=== PATIENT | female | born 1975 | race Hispanic/Latino ===

== ENCOUNTER 2025-02-12 00:16 | Day surgery (SDC) | payer BC, SELFPAY ==
[2025-02-05 08:18] VITALS: BMI 30.2
--- OUTSIDE RECORDS SUMMARY | 2025-02-12 00:21 | XMS_ITS | Clinical Summary ---
Author Organization [facility] Address [address] [place] [address] Care Team Providers Care Customer Success Specialist Name Role Phone Unavailable Primary Care Provider Unavailabl e Source Comments [facility],non-owned Affiliates and Associated Physician Practices is amultiple site organization consisting of ambulatory clinics and hospital sitesin [place], [place], [place] and [place]. This disclosure is being madepursuant to the Care Everywhere program and may not contain all information available regarding this patient. Last updated 18.[facility] Allergies No known active allergies Medications * Be aware that medications may not be up to date on this document. Alwaysverify current medications with the patient. levothyroxine (SYNTHROID) 75 MCG tablet Take 75 mcg by mouth daily before breakfast Active Vit-Fe Fumarate-FA ( VITAMIN) 28-0.8 MG tablet Take 1 Tab by mouth once daily Active ferrous sulfate 325 (65 FE) MG tablet Take 325 mg by mouth once daily Active clotrimazole (LOTRIMIN AF) 1 % creamIndication s:Yeast,Breast folds Apply to affected area 2 times daily Reasons: Yeast, Breast folds Active Active Problems Problem Noted Date Diagnosed Date AMA (advanced maternal age) multigravida 35+ Hypothyroidism affecting 06/22/2016 Encounter for anatomic survey 06/22/2016 Family History Medical History Relation Name Comments Cancer Father Kidney Disease Maternal Grandfather Diabetes Maternal Grandmother Labor Other Clotting Disorder Sister Diabetes Sister Twins Sister Relation Name Status Comments Father Maternal Grandfather Maternal Grandmother Other Sister Social History Tobacco Use Types Packs/Day Years Used Date Smoking Tobacco: Never Smokeless Tobacco: Never Alcohol Use Standard Drinks/Week Comments No 0 (1 standard drink = 0.6 oz pur e alcohol) Comments No Sex and Gender Information Value Date Recorded Sex Assigned at Not on file 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 Gender Identity Not on file Sexual Orientation Not on file Last Filed Vital Signs Vital Sign Reading Time Taken Comments Blood Pressure 94/51 09/03/2016 11:11 AM CDT Pulse 84 09/03/2016 11:11 AM CDT Temperature - - Respiratory Rate - - Oxygen Saturation - - Inhaled Oxygen Concentration - - Weight 68 kg (150 lb) 09/03/2016 11:11 AM CDT Height 152.4 cm (5') 04/23/2016 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 Body Mass Index 29.29 04/23/2016 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 Plan of Treatment Health Maintenance Due Date Last Done Comments COLOGUARD (AGES 45-75) - COL ON CA SCREENING 1977 COLON MONITORING 1977 COLONOSCOPY - COLON CA SCREENING 1977 CT COLONOGRAPHY - COLON CA SCREENING 1977 Colorectal Cancer Screening 1977 FIT - COLON CA SCREENING 1977 FLEX SIG - COLON CA SCREENING 1977 LIPID TESTING 1977 MAMMOGRAM 1977 HIV SCREENING 1992 HEPATITIS C SCREENING 09/21/1995 DTAP/TDAP/TD VACCINES (1 - Tdap) 1996 HEPATITIS B VACCINE (1 of 3 - 19+ 3-dose series) 1996 DEPRESSION SCREENING 05/06/2024 COVID-19 VACCINE (1 - 2023-2 5 season) 2025 INFLUENZA VACCINE (#1) 2025 ZOSTER VACCINE (1 of 2) 09/26/2027 HIB VACCINE Aged Out No longer eligi ble based on patient's age to complete this topic HPV VACCINE Aged Out No longer eligi ble based on patient's age to complete this topic MENINGOCOCCAL (Group B) VACC INE SHARED DECISION-MAKING Aged Out No longer eligibl e based on patient's age to complete this topic MENINGOCOCCAL GROUPS A/C/Y/W VACCINE Aged Out No longer eligible b ased on patient's age to complete this topic PNEUMOCOCCAL VACCINE Aged Out No long er eligible based on patient's age to complete this topic Insurance [employer] MEDICAID - [place]
--- OUTSIDE RECORDS SUMMARY | 2025-02-12 00:21 | XMS_ITS | Clinical Summary ---
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 Gender Identity Not on file Sexual Orientation Not on file Plan of Treatment Health Maintenance Due Date Last Done Comments Hepatitis C Virus (HCV) Screening 1977 Hepatitis B Immunization (1 of 3 - 19+ 3-dose series) 1996 Pap Smear 1998 Cervical Cancer Screening (CCS) 09/26/2007 HPV/Cotest 09/26/2007 Cologuard 2022 Colonoscopy 2022 Colorectal Cancer Screening 2022 Immunochemical Fecal Occult Blood 2022 Influenza Immunization (#1) 01/04/202502/04, 05/27/2017, 03/07/2016, Additional history exists SARS-COV-2 Immunization ( season) 2025 09/10/2020, 08/19/2020 Respiratory Syncytial Virus (RSV) Immunization (Adult) (1 - 1-dose 75+ series) 2052 DTaP/Tdap/Td Immunization Discontinued 11/03/2016, 07/2011 TdaP Immunization Completed 11/03/2016, 11/06/2011 Human Papillomavirus (HPV) Immunization Aged Out No longer eligible based on patient's age to complete this topic Meningococcal Immunization (ACWY) Aged Out No longer eligible based on patient's age to complete this topic Pneumococcal Immunization Combined Aged Out No longer eligible based on patient's age to complete this topic Rotavirus Immunization Aged Out No lo nger eligible based on patient's age to complete this topic
--- OUTSIDE RECORDS SUMMARY | 2025-02-12 00:21 | XMS_ITS | Data Portability ---
Author Organization ID - [facility] Address [address] [place] [address] Care Team Providers Care Bicycle Technician Name Role Phone TAYE VIRK Primary Care Provider Assessment Encounter Date Assessment Date Assessment LastModified by Organization Details LastModified Time 09/24/2023 09/24/2023 IUD 2020 [email or web address] Not available 09/04 11:02:58 10/05/2024 10/05/2024 IUD 2020 [email or web address] Not available 06/2024 11:04:05 Plan of Treatment Reminders Order Date Submit Date Provider Last Modified By Organization Details Last Modified Time Details Appointments None recorded. Lab lipid panel, serum 2024 025 ALAMO [facility], [address], [address], [place], [address], 5 08:27:54 HbA1c (hemoglobi n A1c), blood 2024 025 ALAMO [facility], [address], [address], [place], [address], 5 08:27:56 CMP, serum or plasma 2024 025 ALAMO [facility], [address], [address], [place], [address], 5 08:27:55 CBC w/ auto diff 2024 025 ODILIA [facility], [address] [facility], [address], [place], [address], 5 08:27:57 TSH, serum, reflex free T4 2024 025 [email or web address] [facility] ([facility]), [address], [place], [address], 5 09:04:23 pap, IG + reflex HPV 2023 024 ODILIA [facility], [address] [facility], [address], [place], [address], 4 14:12:20 lipid panel, serum 2023 024 [facility]O [facility], [address], [address], [place], [address], 4 11:16:11 HbA1c (hemoglobi n A1c), blood 2023 024 [facility]O [facility], [address], [address], [place], [address], 4 11:16:13 CMP, serum or plasma 2023 024 [facility], [address], [address], [place], [address], 4 11:16:12 CBC w/ auto diff 2023 024 ALAMO [facility], [address] [facility], [address], [place], [address], 4 11:16:14 TSH + free T4, serum 2023 024 [facility], [address], [address], [place], [address], 4 11:16:09 HbA1c (hemoglobi n A1c), blood 2022 023 [facility], [address], [address], [place], [address], 3 06:16:56 CMP, serum or plasma 2022 023 [facility], [address], [address], [place], [address], 3 20:09:55 noninvasiv e colorectal cancer DNA + occult blood screening, QL, stool 2022 023 ALAMO [facility], [address], [address], [place], [address], 4 08:49:00 lipid panel, serum 2022 023 [facility], [address], [address], [place], [address], 3 20:09:54 TSH, ultra-sens itive, serum 2021 022 [facility], [address] [place] [address], [address], [address], 2 11:04:04 Referral gastroente rologist referral 2024 025 jerrica Casper MD, [address] [place] [address] [address], [address], [place], [address], 5 08:14:42 gastroente rologist referral 2023 024 HOUSTON Casper MD, [address] [facility] [address], [address], [place], [address], 4 16:03:11 Procedures None recorded. Surgeries None recorded. Imaging US, breast, unilateral - pes sized mobile small breast mass L breast around 11:[id number] [facility], [address], [address], [place], [address], 4 08:00:58 MAMMO, diagnostic , digital, bilateral 2023 024 [facility], [address], [address], [place], [address], 4 08:00:59 Medication Orders levothyrox ine 75 mcg tablet 2023 024 ALAMO [facility] #[id number], [address], [place], [id number], 4 10:57:52 levothyrox ine 75 mcg tablet 2022 023 [id number], [address], [place], [id number], 3 11:37:19 Flonase Allergy Relief 50 mcg/actuat ion nasal spray,susp ension 2021 023 [email or web address], [address], [place], [id number], 3 11:27:21 levothyrox ine 75 mcg tablet 2021 022 ALAMO [facility] #[id number], [address], [place], [id number], 2 17:29:30 Patient TargetsNo targets recorded. Patient Instructions Encounter Date Encounter Id Patient Instructions Last Modified By Organization Details Last Modified Time 01/16/2022 [id number] A healthy lifestyle: care instructions Not available 01/16/2022 17:32:03 A healthy lifestyle: care instructions Not available 01/16/2022 17:32:02 07/27/2022 [id number] A healthy lifestyle: care instructions Not available 07/27/2022 11:26:56 09/24/2023 [id number] A healthy lifestyle: care instructions Not available 09/24/2023 10:57:38 A healthy lifestyle: care instructions Not available 09/24/2023 11:14:15 10/03/2023 [id number] A healthy lifestyle: care instructions Not available 10/03/2023 11:10:42 Aprenda sobre la s pruebas de detecci n del c ncer de seno - [Learning About Breast Cancer Screening] Not available 10/03/2023 11:46:37 10/05/2024 [id number] A healthy lifestyle: care instructions Not available 10/05/2024 11:08:58 A healthy lifestyle: care instructions Not available 10/05/2024 11:08:58 Reason for Referral Unix Architect Referral for Screening for malignant neoplasm of colon Referring Physician: Taye Virk Legend Maker, Encounter Date: 09/24/2023 Unix Architect Referral for Screening for malignant neoplasm of colon Referring Physician: Taye Virk Legend Maker, Encounter Date: 10/05/2024 Results Created Date Observation Date Name Description Value Unit Range Abnormal Flag Note LastModifiedBy Organization Detail LastModifiedTime 07/27/1907/27/2023 COLOG UARD cologuard result Cancel led - Order d not applic able Not Available [facility] [address], [place], [address], 07/27/2023 08:49:00 07/28/1907/27/2022 LIPID PANEL cholesterol, total 159.1 mg/dL 140.0- 200.0 Not Available [facility] [address] [place], [address], 07/27/2022 20:09:54 07/28/1907/27/2022 LIPID PANEL triglyceride s 96 mg/dL <=150 Not Available [facility] Department [address] [place], [address], 07/27/2022 20:09:54 07/28/19 23 07/27/2022 LIPID PANEL HDL cholesterol 49.1 mg/dL 40.0-1 00.0 Not Available [facility] [place] [facility] [address] [place], [address], 07/27/2022 20:09:54 07/28/19 23 07/27/2022 LIPID PANEL VLDL cholesterol chai 19.20 mg/dL 5.00-4 0.00 Not Available [facility] [place] [facility] [address] [place], [address], 07/27/2022 20:09:54 07/28/19 23 07/27/2022 LIPID PANEL LDL chol calc ([facility]) 92.2 Not Available [facility] Department [address] [place], [address], 07/27/2022 20:09:54 07/28/19 23 07/27/2022 COMP. METAB OLIC PANEL (14) glucose 90 mg/dL 65-99 ANION GP 15.0 mmol/ L N OSMOL 275.0 mOsM/ L N REFER ENCE RANGE : 275.0 -301. 0 Not Available [facility] [address] [place], [address], 07/27/2022 20:09:55 07/28/19 23 07/27/2022 COMP. METAB OLIC PANEL (14) BUN 11 mg/dL 8-26 Not Available [facility] [place] [facility] [address] [place], [address], 07/27/2022 20:09:55 07/28/19 23 07/27/2022 COMP. METAB OLIC PANEL (14) creatinine 0.58 mg/dL 0.50-1 .40 Not Available [facility] [place] [facility] [address] [place], [address], 07/27/2022 20:09:55 07/28/19 23 07/27/2022 COMP. METAB OLIC PANEL (14) eGFR 114 mL/mi n/1.7 3 >=60 Not Available [facility] [place] [facility] [address] [place] [address], [address], 07/27/2022 20:09:55 07/28/19 23 07/27/2022 COMP. METAB OLIC PANEL (14) BUN/creatini ne ratio 19.7 Not Available [facility] Department [address] [place] [address], [address], 07/27/2022 20:09:55 07/28/19 23 07/27/2022 COMP. METAB OLIC PANEL (14) sodium 138.0 mmol/ L 136.0- 144.0 Not Available [facility] [place] [facility] [address] [place] [address], [address], 07/27/2022 20:09:55 07/28/19 23 07/27/2022 COMP. METAB OLIC PANEL (14) potassium 4.1 mmol/ L 3.5-5. 3 Not Available [facility] [address] [place] [address], [address], 07/27/2022 20:09:55 07/28/19 23 07/27/2022 COMP. METAB OLIC PANEL (14) chloride 103 mmol/ l 101-11 1 Not Available [facility] [address] [place] [address], [address], 07/27/2022 20:09:55 07/28/19 23 07/27/2022 COMP. METAB OLIC PANEL (14) carbon dioxide, total 24.3 mmol/ L 21.0-3 2.0 Not Available [facility] [address] [place] [address], [address], 07/27/2022 20:09:55 07/28/19 23 07/27/2022 COMP. METAB OLIC PANEL (14) calcium 9.3 mg/dL 8.2-10 .0 Not Available [facility] [address] [place], [address], 07/27/2022 20:09:55 07/28/19 23 07/27/2022 COMP. METAB OLIC PANEL (14) protein, total 7.2 g/dL 6.7-8. 2 Not Available [facility] [address] [place], [address], 07/27/2022 20:09:55 07/28/19 23 07/27/2022 COMP. METAB OLIC PANEL (14) albumin 4.5 g/dL 3.5-5. 5 Not Available [facility] [address] [place] [address], [address], 07/27/2022 20:09:55 07/28/19 23 07/27/2022 COMP. METAB OLIC PANEL (14) globulin, total 2.7 g/dL 1.5-4. 5 Not Available [facility] [address] [place], [address], 07/27/2022 20:09:55 07/28/19 23 07/27/2022 COMP. METAB OLIC PANEL (14) A/G ratio 1.7 Not Available [facility] Department [address] [place], [address], 07/27/2022 20:09:55 07/28/19 23 07/27/2022 COMP. METAB OLIC PANEL (14) bilirubin, total 0.6 mg/dL 0.0-1. 2 Not Available [facility] [address] [place], [address], 07/27/2022 20:09:55 07/28/19 23 07/27/2022 COMP. METAB OLIC PANEL (14) alkaline phosphatase 58.2 IU/L 42.0-1 21.0 Not Available [facility] [address] [place], [address], 07/27/2022 20:09:55 07/28/19 23 07/27/2022 COMP. METAB OLIC PANEL (14) AST (SGOT) 12.8 U/L 10.0-4 2.0 Not Available [facility] [address] [place], [address], 07/27/2022 20:09:55 07/28/19 23 07/27/2022 COMP. METAB OLIC PANEL (14) ALT (SGPT) 7.7 U/L 10.0-6 0.0 below low normal Not Available [facility] [address] [place], [address], 07/27/2022 20:09:55 07/28/19 23 07/28/2022 HEMOG LOBIN A1C hemoglobin A1C 5.2 % 4.8-5. 6 Predi abete s: 5.7 - 6.4 Diabe emanuel: >6.4 Glyce francis contr ol for adult s with diabe emanuel: <7.0 Not Available [facility] ([facility]) [address] [place], [address], 07/28/2022 06:16:56 09/24/19 24 2023 TSH+F REE T4 TSH 1.190 uIU/m L 0.450- 4.500 Not Available [facility] ([facility]) [address] [place], [address], 2023 11:16:09 09/24/19 24 2023 TSH+F REE T4 T4,free(dire ct) 1.78 NG/dL 0.82-1 .77 above high normal Not Available [facility] ([facility]) [address] [place], [address], 2023 11:16:09 09/24/19 24 2023 LIPID PANEL cholesterol, total 165 mg/dL 100-19 9 Not Available [facility] ([facility]) [address] [place], [address], 2023 11:16:10 09/24/19 24 2023 LIPID PANEL triglyceride s 79 mg/dL 0-149 Not Available [facility] ([facility]) [address] [place], [address], 2023 11:16:10 09/24/19 24 2023 LIPID PANEL HDL cholesterol 50 mg/dL >39 Not Available [facility] ([facility]) [address] [place], [address], 2023 11:16:10 09/24/19 24 2023 LIPID PANEL VLDL cholesterol chai 15 mg/dL 5-40 Not Available [facility] ([facility]) [address] [place], [address], 2023 11:16:10 09/24/19 24 2023 LIPID PANEL LDL chol calc ([facility]) 100 mg/dL 0-99 above high normal Not Available [facility] ([facility]) [address] [place], [address], 2023 11:16:10 09/24/19 24 2023 COMP. METAB OLIC PANEL (14) glucose 75 mg/dL 70-99 Not Available [facility] ([facility]) [address] [place], [address], 2023 11:16:12 09/24/19 24 2023 COMP. METAB OLIC PANEL (14) BUN 14 mg/dL 6-24 Not Available [facility] ([facility]) [address] [place], [address], 2023 11:16:12 09/24/19 24 2023 COMP. METAB OLIC PANEL (14) creatinine 0.81 mg/dL 0.57-1 .00 Not Available [facility] ([facility]) [address] [place], [address], 2023 11:16:12 09/24/19 24 2023 COMP. METAB OLIC PANEL (14) eGFR 91 mL/mi n/1.7 3 >59 Not Available [facility] ([facility]) [address], [place], [address], 2023 11:16:12 09/24/19 24 2023 COMP. METAB OLIC PANEL (14) BUN/creatini ne ratio 17 9-23 Not Available [facility] ([facility]) [address] [facility] [address], [place], [address], 2023 11:16:12 09/24/19 24 2023 COMP. METAB OLIC PANEL (14) sodium 136 mmol/ L 134-14 4 Not Available [facility] ([facility]) [address] [facility] [address], [place], [address], 2023 11:16:12 09/24/19 24 2023 COMP. METAB OLIC PANEL (14) potassium 4.3 mmol/ L 3.5-5. 2 Not Available [facility] ([facility]) [address] [facility] [place], [place], [address], 2023 11:16:12 09/24/19 24 2023 COMP. METAB OLIC PANEL (14) chloride 101 mmol/ L 96-106 Not Available [facility] ([facility]) [address] [facility], [place], [address], 2023 11:16:12 09/24/19 24 2023 COMP. METAB OLIC PANEL (14) carbon dioxide, total 20 mmol/ L 20-29 Not Available [facility] ([facility]) [address] [facility] [address], [place], [address], 2023 11:16:12 09/24/19 24 2023 COMP. METAB OLIC PANEL (14) calcium 9.2 mg/dL 8.7-10 .2 Not Available [facility] ([facility]) [address] [place], [address], 2023 11:16:12 09/24/19 24 2023 COMP. METAB OLIC PANEL (14) protein, total 7.2 g/dL 6.0-8. 5 Not Available [facility] ([facility]) [address], [place], [address], 2023 11:16:12 09/24/19 24 2023 COMP. METAB OLIC PANEL (14) albumin 4.5 g/dL 3.9-4. 9 Not Available [facility] ([facility]) [address] [place], [address], 2023 11:16:12 09/24/19 24 2023 COMP. METAB OLIC PANEL (14) globulin, total 2.7 g/dL 1.5-4. 5 Not Available [facility] ([facility]) [address] [place], [address], 2023 11:16:12 09/24/19 24 2023 COMP. METAB OLIC PANEL (14) A/G ratio 1.7 1.2-2. 2 Not Available [facility] ([facility]) [address] [place], [address], 2023 11:16:12 09/24/19 24 2023 COMP. METAB OLIC PANEL (14) bilirubin, total 0.7 mg/dL 0.0-1. 2 Not Available [facility] ([facility]) [address] [place], [address], 2023 11:16:12 09/24/19 24 2023 COMP. METAB OLIC PANEL (14) alkaline phosphatase 65 IU/L 44-121 Not Available [facility] ([facility]) [address] [place], [address], 2023 11:16:12 09/24/19 24 2023 COMP. METAB OLIC PANEL (14) AST (SGOT) 21 IU/L 0-40 Not Available [facility] ([facility]) [address] [place], [address], 2023 11:16:12 09/24/19 24 2023 COMP. METAB OLIC PANEL (14) ALT (SGPT) 12 IU/L 0-32 Not Available [facility] ([facility]) [address] [place], [address], 2023 11:16:12 09/24/19 24 2023 HEMOG LOBIN A1C hemoglobin A1C - % Test not perfo rmed. No laven kelly top tube submi tted. Predi abete s: 5.7 - 6.4 Diabe emanuel: >6.4 Glyce francis contr ol for adult s with diabe emanuel: <7.0 Not Available [facility] ([facility]) [address] [place], [address], 2023 11:16:13 09/24/19 24 2023 CBC WITH DIFFE RENTI AL/PL ATELE T WBC - x10e3 /uL Test not perfo rmed. No laven kelly top tube submi tted. Not Available [facility] ([facility]) [address] [place], [address], 2023 11:16:14 09/24/19 24 2023 CBC WITH DIFFE RENTI AL/PL ATELE T RBC - Test not perfo rmed Not Available [facility] ([facility]) [address] [place], [address], 2023 11:16:14 09/24/19 24 2023 CBC WITH DIFFE RENTI AL/PL ATELE T hemoglobin - Test not perfo rmed Not Available [facility] ([facility]) [address] [facility], [place], [address], 2023 11:16:14 09/24/19 24 2023 CBC WITH DIFFE RENTI AL/PL ATELE T hematocrit - Test not perfo rmed Not Available [facility] ([facility]) [address] [facility], [place], [address], 2023 11:16:14 09/24/19 24 2023 CBC WITH DIFFE RENTI AL/PL ATELE T platelets - Test not perfo rmed Not Available [facility] ([facility]) [address] [facility], [place], [address], 2023 11:16:14 09/24/19 24 2023 CBC WITH DIFFE RENTI AL/PL ATELE T neutrophils - Test not perfo rmed Not Available [facility] ([facility]) [address] [facility], [place], [address], 2023 11:16:14 09/24/19 24 2023 CBC WITH DIFFE RENTI AL/PL ATELE T lymphs - Test not perfo rmed Not Available [facility] ([facility]) [address] [place], [address], 2023 11:16:14 09/24/19 24 2023 CBC WITH DIFFE RENTI AL/PL ATELE T monocytes - Test not perfo rmed Not Available [facility] ([facility]) [address] [place], [address], 2023 11:16:14 09/24/19 24 2023 CBC WITH DIFFE RENTI AL/PL ATELE T eos - Test not perfo rmed Not Available [facility] ([facility]) [address] [facility], [place], [address], 2023 11:16:14 09/24/19 24 2023 CBC WITH DIFFE RENTI AL/PL ATELE T lymphs (absolute) - Test not perfo rmed Not Available [facility] ([facility]) [address] [place], [address], 2023 11:16:14 09/24/19 24 2023 CBC WITH DIFFE RENTI AL/PL ATELE T eos (absolute) - Test not perfo rmed Not Available [facility] ([facility]) [address] [facility], [place], [address], 2023 11:16:14 09/24/19 24 2023 CBC WITH DIFFE RENTI AL/PL ATELE T baso (absolute) - Test not perfo rmed Not Available [facility] ([facility]) [address] [place], [address], 2023 11:16:14 10/03/19 24 10/03/2023 IGP,A PTIMA HPV,A GE GDLN age gdln acog testing 30-65 Not Available [facility] ([facility]) [address] [place], [address], 10/08/2023 14:12:20 10/03/19 24 10/05/2023 IGP, APTIM A HPV, RFX 16/18 ,45 HPV aptima Negati ve negati ve This nucle ic acid ampli ficat ion test detec ts fourt een high- risk HPV types (16,1 8,31, 33,35 ,39,4 5,51, 52,56 ,58,5 9,66, 68) witho ut diffe renti ation . Not Available [facility] ([facility]) [address] [facility], [place], [address], 10/08/2023 14:12:22 10/03/19 24 10/08/2023 IGP, APTIM A HPV, RFX 16/18 ,45 diagnosis: Elliot carroll NEGAT JOSE FOR INTRA EPITH ELIAL LESIO N OR MALIG KACY . SPECI MEN REPRO CESSE D FOR INTER PRETA TION USING GLACI AL ACETI C ACID (GAA) . Not Available [facility] ([facility]) [address] [facility], [place], [address], 10/08/2023 14:12:22 10/03/19 24 10/08/2023 IGP, APTIM A HPV, RFX 16/18 ,45 specimen adequacy: Elliot carroll Satis facto ry for evalu ation . No endoc ervic al compo nent is ident ified . Areas of parti ally obscu ring blood are prese nt. Not Available [facility] ([facility]) [address] [facility], [place], [address], 10/08/2023 14:12:22 10/03/19 24 10/08/2023 IGP, APTIM A HPV, RFX 16/18 ,45 clinician provided ICD10: Elliot carroll Z01.4 19 Not Available [facility] ([facility]) [address] [facility], [place], [address], 10/08/2023 14:12:22 10/03/19 24 10/08/2023 IGP, APTIM A HPV, RFX 16/18 ,45 performed by: Elliot Sharif Cytocarly carroll (ASCP ) Not Available [facility] ([facility]) [address] [facility], [place], [address], 10/08/2023 14:12:22 10/03/19 24 10/08/2023 IGP, APTIM A HPV, RFX 16/18 ,45 . . Not Available [facility] ([facility]) [address] [place], [address], 10/08/2023 14:12:22 10/03/19 24 10/08/2023 IGP, APTIM A HPV, RFX 16/18 ,45 note: Commen t The Pap smear is a scree jennifer test desig yg to aid in the detec tion of darwin ligna nt and malig nant condi tions of the uteri ne cervi x. It is not a diagn ostic proce dure and shoul d not be used as the sole means of detec ting cervi chai cance r. Both false -posi tive and false -nega tive repor ts do occur . Not Available [facility] ([facility]) [address] [place], [address], 10/08/2023 14:12:22 10/03/19 24 10/08/2023 IGP, APTIM A HPV, RFX 16/18 ,45 test methodology: Commen t This liqui d based ThinP rep(R ) pap test was scree yg with the use of an image guide d systashok m. Not Available [facility] ([facility]) [address] [place], [address], 10/08/2023 14:12:22 10/03/19 24 10/08/2023 IGP, APTIM A HPV, RFX 16/18 ,45 HPV genotype reflex Commen t Crite huang not met, HPV Genot ype not perfo rmed. Not Available [facility] ([facility]) [address] [place], [address], 10/08/2023 14:12:22 10/06/19 25 10/06/2024 LIPID PANEL cholesterol, total 179 mg/dL 100-19 9 Not Available [facility] ([facility]) [address] [place], [address], 10/06/2024 08:27:54 10/06/19 25 10/06/2024 LIPID PANEL triglyceride s 143 mg/dL 0-149 Not Available [facility] ([facility]) [address] [facility] [place], [address], 10/06/2024 08:27:54 10/06/19 25 10/06/2024 LIPID PANEL HDL cholesterol 53 mg/dL >39 Not Available [facility] ([facility]) [address] [facility] [place], [address], 10/06/2024 08:27:54 10/06/19 25 10/06/2024 LIPID PANEL VLDL cholesterol chai 25 mg/dL 5-40 Not Available [facility] ([facility]) [address] [facility] [place], [address], 10/06/2024 08:27:54 10/06/19 25 10/06/2024 LIPID PANEL LDL chol calc ([facility]) 101 mg/dL 0-99 above high normal Not Available [facility] ([facility]) [address] [place], [address], 10/06/2024 08:27:54 10/06/19 25 10/06/2024 COMP. METAB OLIC PANEL (14) glucose 92 mg/dL 70-99 Not Available [facility] ([facility]) [address] [facility] [place], [address], 10/06/2024 08:27:55 10/06/19 25 10/06/2024 COMP. METAB OLIC PANEL (14) BUN 11 mg/dL 6-24 Not Available [facility] ([facility]) [address] [place], [address], 10/06/2024 08:27:55 10/06/19 25 10/06/2024 COMP. METAB OLIC PANEL (14) creatinine 0.70 mg/dL 0.57-1 .00 Not Available [facility] ([facility]) [address] [place], [address], 10/06/2024 08:27:55 10/06/19 25 10/06/2024 COMP. METAB OLIC PANEL (14) eGFR 107 mL/mi n/1.7 3 >59 Not Available [facility] ([facility]) [address] [place], [address], 10/06/2024 08:27:55 10/06/19 25 10/06/2024 COMP. METAB OLIC PANEL (14) BUN/creatini ne ratio 16 9-23 Not Available [facility] ([facility]) [address] [place], [address], 10/06/2024 08:27:55 10/06/19 25 10/06/2024 COMP. METAB OLIC PANEL (14) sodium 138 mmol/ L 134-14 4 Not Available [facility] ([facility]) [address] [place], [address], 10/06/2024 08:27:55 10/06/19 25 10/06/2024 COMP. METAB OLIC PANEL (14) potassium 4.2 mmol/ L 3.5-5. 2 Not Available [facility] ([facility]) [address] [place], [address], 10/06/2024 08:27:55 10/06/19 25 10/06/2024 COMP. METAB OLIC PANEL (14) chloride 104 mmol/ L 96-106 Not Available [facility] ([facility]) [address] [place], [address], 10/06/2024 08:27:55 10/06/19 25 10/06/2024 COMP. METAB OLIC PANEL (14) carbon dioxide, total 20 mmol/ L 20-29 Not Available [facility] ([facility]) [address] [place], [address], 10/06/2024 08:27:55 10/06/19 25 10/06/2024 COMP. METAB OLIC PANEL (14) calcium 9.0 mg/dL 8.7-10 .2 Not Available [facility] ([facility]) [address] [facility] [place], [address], 10/06/2024 08:27:55 10/06/19 25 10/06/2024 COMP. METAB OLIC PANEL (14) protein, total 7.1 g/dL 6.0-8. 5 Not Available [facility] ([facility]) [address] [facility] [place], [address], 10/06/2024 08:27:55 10/06/19 25 10/06/2024 COMP. METAB OLIC PANEL (14) albumin 4.5 g/dL 3.9-4. 9 Not Available [facility] ([facility]) [address] [facility] [place], [address], 10/06/2024 08:27:55 10/06/19 25 10/06/2024 COMP. METAB OLIC PANEL (14) globulin, total 2.6 g/dL 1.5-4. 5 Not Available [facility] ([facility]) [address] [facility] [place], [address], 10/06/2024 08:27:55 10/06/19 25 10/06/2024 COMP. METAB OLIC PANEL (14) bilirubin, total 0.5 mg/dL 0.0-1. 2 Not Available [facility] ([facility]) [address] [facility] [place], [address], 10/06/2024 08:27:55 10/06/19 25 10/06/2024 COMP. METAB OLIC PANEL (14) alkaline phosphatase 68 IU/L 44-121 Not Available [facility] ([facility]) [address] [facility] [place], [address], 10/06/2024 08:27:55 10/06/19 25 10/06/2024 COMP. METAB OLIC PANEL (14) AST (SGOT) 18 IU/L 0-40 Not Available [facility] ([facility]) [address] [place], [address], 10/06/2024 08:27:55 10/06/19 25 10/06/2024 COMP. METAB OLIC PANEL (14) ALT (SGPT) 16 IU/L 0-32 Not Available [facility] ([facility]) [address] [place], [address], 10/06/2024 08:27:55 10/06/19 25 10/06/2024 HEMOG LOBIN A1C hemoglobin A1C 5.2 % 4.8-5. 6 Predi abete s: 5.7 - 6.4 Diabe emanuel: >6.4 Glyce francis contr ol for adult s with diabe emanuel: <7.0 Not Available [facility] ([facility]) [address] [facility] [address], [place], [address], 10/06/2024 08:27:56 10/06/19 25 10/06/2024 CBC WITH DIFFE RENTI AL/PL ATELE T WBC 5.9 x10e3 /uL 3.4-10 .8 Not Available [facility] ([facility]) [address] [place], [address], 10/06/2024 08:27:57 10/06/19 25 10/06/2024 CBC WITH DIFFE RENTI AL/PL ATELE T RBC 4.71 x10e6 /uL 3.77-5 .28 Not Available [facility] ([facility]) [address] [place], [address], 10/06/2024 08:27:57 10/06/19 25 10/06/2024 CBC WITH DIFFE RENTI AL/PL ATELE T hemoglobin 14.7 g/dL 11.1-1 5.9 Not Available [facility] ([facility]) [address] [place], [address], 10/06/2024 08:27:57 10/06/19 25 10/06/2024 CBC WITH DIFFE RENTI AL/PL ATELE T hematocrit 44.0 % 34.0-4 6.6 Not Available [facility] ([facility]) [address] [place], [address], 10/06/2024 08:27:57 10/06/19 25 10/06/2024 CBC WITH DIFFE RENTI AL/PL ATELE T MCV 93 fL 79-97 Not Available [facility] ([facility]) [address] [place], [address], 10/06/2024 08:27:57 10/06/19 25 10/06/2024 CBC WITH DIFFE RENTI AL/PL ATELE T MCH 31.2 pg 26.6-3 3.0 Not Available [facility] ([facility]) [address] [place], [address], 10/06/2024 08:27:57 10/06/19 25 10/06/2024 CBC WITH DIFFE RENTI AL/PL ATELE T MCHC 33.4 g/dL 31.5-3 5.7 Not Available [facility] ([facility]) [address] [place], [address], 10/06/2024 08:27:57 10/06/19 25 10/06/2024 CBC WITH DIFFE RENTI AL/PL ATELE T RDW 12.3 % 11.7-1 5.4 Not Available [facility] ([facility]) [address] [place], [address], 10/06/2024 08:27:57 10/06/19 25 10/06/2024 CBC WITH DIFFE RENTI AL/PL ATELE T platelets 224 x10e3 /uL 150-45 0 Not Available [facility] ([facility]) [address] [place], [address], 10/06/2024 08:27:57 10/06/19 25 10/06/2024 CBC WITH DIFFE RENTI AL/PL ATELE T neutrophils 59 % notest ab. Not Available [facility] ([facility]) [address] [facility] [address], [place], [address], 10/06/2024 08:27:57 10/06/19 25 10/06/2024 CBC WITH DIFFE RENTI AL/PL ATELE T lymphs 33 % notest ab. Not Available [facility] ([facility]) [address] [facility] [address], [place], [address], 10/06/2024 08:27:57 10/06/19 25 10/06/2024 CBC WITH DIFFE RENTI AL/PL ATELE T monocytes 7 % notest ab. Not Available [facility] ([facility]) [address] [facility] [address], [place], [address], 10/06/2024 08:27:57 10/06/19 25 10/06/2024 CBC WITH DIFFE RENTI AL/PL ATELE T eos 1 % notest ab. Not Available [facility] ([facility]) [address] [facility] [address], [place], [address], 10/06/2024 08:27:57 10/06/19 25 10/06/2024 CBC WITH DIFFE RENTI AL/PL ATELE T basos 0 % notest ab. Not Available [facility] ([facility]) [address] [place], [address], 10/06/2024 08:27:57 10/06/19 25 10/06/2024 CBC WITH DIFFE RENTI AL/PL ATELE T neutrophils (absolute) 3.5 x10e3 /uL 1.4-7. 0 Not Available [facility] ([facility]) [address] [place], [address], 10/06/2024 08:27:57 10/06/19 25 10/06/2024 CBC WITH DIFFE RENTI AL/PL ATELE T lymphs (absolute) 2.0 x10e3 /uL 0.7-3. 1 Not Available [facility] ([facility]) [address] [facility] [address], [place], [address], 10/06/2024 08:27:57 10/06/19 25 10/06/2024 CBC WITH DIFFE RENTI AL/PL ATELE T monocytes(ab solute) 0.4 x10e3 /uL 0.1-0. 9 Not Available [facility] ([facility]) [address] [facility] [address], [place], [address], 10/06/2024 08:27:57 10/06/19 25 10/06/2024 CBC WITH DIFFE RENTI AL/PL ATELE T eos (absolute) 0.1 x10e3 /uL 0.0-0. 4 Not Available [facility] ([facility]) [address] [facility] [address], [place], [address], 10/06/2024 08:27:57 10/06/19 25 10/06/2024 CBC WITH DIFFE RENTI AL/PL ATELE T baso (absolute) 0.0 x10e3 /uL 0.0-0. 2 Not Available [facility] ([facility]) [address] [facility], [place], [address], 10/06/2024 08:27:57 10/06/19 25 10/06/2024 CBC WITH DIFFE RENTI AL/PL ATELE T immature granulocytes 0 % notest ab. Not Available [facility] ([facility]) [address] [place], [address], 10/06/2024 08:27:57 10/06/19 25 10/06/2024 CBC WITH DIFFE RENTI AL/PL ATELE T immature grans (abs) 0.0 x10e3 /uL 0.0-0. 1 Not Available [facility] ([facility]) [address] [facility], [place], [address], 10/06/2024 08:27:57 Result Notes None recorded. Problems Name Problem SNOMED Code Status Onset Date Resolution Date Notes Provider Name and Address Organization Details Recorded Time Hypothyr oidism 29483339 Active [facility] co managed Abhishek Mitchell MD Attn: Accounting ,[address] [place], [address] , [facility] 7 13:07:49 Dizzines s 366096010 Active Elda Law PA-C Attn: Accounting ,[address] [place], [address] , [facility] 6 11:21:13 Deliveri es by [id number] Completed planning vasectom y Abhishek Mitchell MD Attn: Accounting ,[address] [place], [address] , [facility] 7 13:07:49 Advanced maternal age 185327145 Completed declined genetic testing w [facility] Abhishek Mitchell MD Attn: Accounting ,[address] [place], [address] , [facility] 7 13:07:49 Hypothyr oidism 45554289 Completed [facility] co managed Abhishek Mitchell MD Attn: Accounting ,[address] [place], [address] , [facility] 7 13:07:49 Anemia 801928697 Completed on Fe therapy with Hx of heavy menses 1 year before getting Abhishek Mitchell MD Attn: Accounting ,[address] [place], [address] , [facility] 7 13:07:49 Herpes simplex 91300637 Completed plan 3rd trim prophyll axis Abhishek Mitchell MD Attn: Accounting ,[address] [place], [address] , [facility] 7 13:07:49 Pregnanc y 99767638 Completed 201512/31/2016 Abhishek Mitchell MD Attn: Accounting ,[address] [place], [address] , [place] [facility] 7 13:07:52 Nasal congesti on 57628486 Active 2016 Elda Law PA-C Attn: Accounting ,[address] [facility], [place], [address] , [place] [facility] 7 10:58:31 Low-lyin g placenta 391828188 Completed 2016 [facility] us at 28+ weeks Abhishek Mitchell MD Attn: Accounting ,[address] [facility], [place], [address] , [place] [facility] 7 13:07:49 Iron deficien cy anemia 07089556 Active 2018 Aftab Kapoor MD Attn: Accounting ,[address] [facility], [place], [address] , [place] [facility] 9 18:49:46 [place] ht 710824143 Active 2023 DRAGAN BUENO Attn: Accounting ,[address] [facility], [place], [address] , [place] [facility] 4 11:16:49 Polyp at cervical os 783045147 Active 2023 DRAGAN BUENO Attn: Accounting ,[address] [facility], [place], [address] , [place] [facility] 4 11:32:23 Problem Notes None recorded. Procedures Surgical History Date Name Laterality Status Provider Name and Address Organization Details Recorded Time 04/05/20 21 Date of Last Mammogram completed Janette Sampson [place] - [facility] 07/03/2021 15:46:00 03/14/20 21 Most Recent Mammogram completed Justus Younger ID - [facility] 03/23/2021 13:27:12 12/05/19 21 Date of Last Pap Smear completed Janette Sampson [place] - [facility] 07/03/2021 15:45:35 06/09/19 21 Endometrial Biopsy completed Justus Younger ID - [facility] 06/09/2020 22:52:29 06/09/19 21 IUD Insertion completed Justus Younger ID - [facility] 06/09/2020 22:53:14 11/02/19 17 section completed Justus Younger ID - [facility] 10/05/2019 20:23:43 11/27/19 09 Caesarean Section completed Ramesh Bocanegra ID - [facility] 04/13/2014 16:54:14 03/26/20 06 [facility] 04/13/[facility] 16:54:14 Imaging Results None recorded. Procedure Notes None recorded. Medical Equipment None Reported. Allergies No known drug allergies Medications Name Sig Start Date Stop Date Status Note LastModified by Organization Details LastModified Time amoxicill in 500 mg capsule TAKE ONE CAPSULE BY MOUTH EVERY 6 HOURS UNTIL ALL TAKEN 06/09 completed Not Available Not Available Not Available Mirena 21 mcg/24 hr (up to 8 years) 52 mg intrauter ine device Take 1 device by intraute rine route. active INSERTED 06/09/20 Not Available Not Available Not Available clindamyc in HCl 300 mg capsule Take 1 capsule 3 times a day by oral route as directed for 10 days. 05/27 completed Not Available Not Available Not Available Pain Reliever (acetamin ophen) 325 mg tablet TAKE 1 TABLET BY MOUTH EVERY 6 HOURS NEEDED FOR PAIN 12/07 completed Not Available Not Available Not Available ibuprofen 800 mg tablet TAKE 1 TABLET BY MOUTH EVERY 8 HOURS 06/09 completed Not Available Not Available Not Available nystatin 100,000 unit/gram topical ointment APPLY TO THE AFFECTED AREA(S) BY TOPICAL ROUTE 2 TIMES PER DAY 04/03 completed Not Available Not Available Not Available hydrocodo ne 5 mg-acetam inophen 325 mg tablet 05/27 completed Not Available Not Available Not Available triamcino lone acetonide 0.1 % topical cream APPLY A THIN LAYER TO THE AFFECTED AREA(S) BY TOPICAL ROUTE 2 TIMES PER DAY 04/03 completed Not Available Not Available Not Available acyclovir 800 mg tablet Take 1 tablet twice a day by oral route for 30 days. 05/27 completed Not Available Not Available Not Available levothyro xine 75 mcg tablet TAKE 1 TABLET BY MOUTH EVERY DAY IN THE MORNING 2024 active Not Available Not Available Not Avai lable Vitamin tablet Take 1 tablet every day by oral route. 05/27 completed Not Available Not Available Not Available levothyro xine 88 mcg tablet Take 1 tablet every day by oral route in the morning. 2013 active Not Available Not Available Not Avai lable ceftriaxo ne 1 gram solution for injection Take 1 g by injectio n route. 05/27 completed Not Available Not Available Not Available Microgest in FE 05/25 (28) 1 mg-20 mcg (21)/75 mg (7) tablet Take 1 tablet every day by oral route. 02/25 completed Not Available Not Available Not Available amoxicill in 875 mg tablet TAKE 1 TABLET BY MOUTH TWICE DAILY UNTIL ALL TAKEN. 07/27 completed Not Available Not Available Not Available ferrous sulfate 325 mg (65 mg iron) tablet TAKE 1 TABLET BY MOUTH THREE TIMES DAILY 12/07 completed Not Available Not Available Not Available hydrocort isone 2.5 % topical cream APPLY A THIN LAYER TO THE AFFECTED AREA(S) BY TOPICAL ROUTE 2 TIMES PER DAY FOR 1 WEEK, THEN STOP 10/04 completed Not Available Not Available Not Available ibuprofen 600 mg tablet TAKE 1 TABLET BY MOUTH EVERY 6 HOURS NEEDED FOR PAIN 12/07 completed Not Available Not Available Not Available clotrimaz ole 1 % topical cream APPLY TO THE AFFECTED AND SURROUND ING AREAS OF SKIN BY TOPICAL ROUTE 2 TIMES PER DAY IN THE MORNING AND EVENING 05/27 completed Not Available Not Available Not Available Se- 19 (with docusate) 29 mg iron-1 mg-25 mg tablet TAKE 1 TABLET BY MOUTH EVERY DAY 05/27 completed Not Available Not Available Not Available levothyro xine 88 mcg capsule Take 1 capsule( s) by mouth daily before breakfas t. 06/14 completed Allow Substitu tion: True Not Available Not Available Not Available Fluvirin 5383-7474 (PF) 45 mcg (15 mcg x3)/0.5 mL intramusc ular syringe 2013 active Not Available Not Available Not Avai lable Flonase Allergy Relief 50 mcg/actua tion nasal spray,fan pension [place] 1 spray every day by intranas al route. 07/27 completed Not Available Not Available Not Available Fluvirin 8282-2319 45 mcg (15 mcg x 3)/0.5 mL intramusc ular suspensio n 06/13 completed Not Available Not Available Not Available Vitals Date Recorded Body mass index (BMI) Body weight Heart rate Oxygen saturation Oxygen saturation in Arterial blood by Pulse oximetry Systolic And Diastolic Provider Name and Address Organization Details Last Updated DateTime 26.3 kg/m2 64505.6 2 g 68 /min 99 % 99 % 120/70 mm[Hg] DRAGAN BUENO Attn: Accountin g,[address] [place], [address], [facility] 3 11:22:01 Date Recorded Body height Provider Name an d Address Organization Details Last Updated DateTime 07/27/2022 156.21 cm Janette Sampson MA [facility] 2022 11:16:00 Date Recorded Heart rate Body mass index (BMI) Body height Provider Name and Address Organization Details Last Updated DateTime 09/24/2023 66 /min 25.9 kg/m2 156.21 cm DRAGAN BUENO Attn: Accounting, [place], [address], [facility] 09/24/2023 11:16:34 Date Recorded Body weight Oxygen saturation Oxygen saturation in Arterial blood by Pulse oximetry Systolic And Diastolic Provider Name and Address Organization Details Last Updated DateTime 09/24/2023 45471.04 g 98 % 98 % 125/77 mm[Hg] Janette Sampson MA [facility] 4 11:13:35 Date Recorded Body height Body mass index (BMI) Body weight Heart rate Oxygen saturation Oxygen saturation in Arterial blood by Pulse oximetry Systolic And Diastolic Provider Name and Address Organization Details Last Updated DateTime 156.21 cm 26.7 kg/m2 16098.8 1 g 65 /min 98 % 98 % 113/71 mm[Hg] BINTA Kenyon [facility] 4 11:02:42 Date Recorded Body height Body mass index (BMI) Body weight Heart rate Oxygen saturation Oxygen saturation in Arterial blood by Pulse oximetry Systolic And Diastolic Provider Name and Address Organization Details Last Updated DateTime 5 156.21 cm 27.1 kg/m2 49641.4 9 g 66 /min 99 % 99 % 124/71 mm[Hg] Janette Sampson MA [facility] 5 10:52:35 Date Recorded Body height Body mass index (BMI) Body weight Heart rate Oxygen saturation Oxygen saturation in Arterial blood by Pulse oximetry Systolic And Diastolic Provider Name and Address Organization Details Last Updated DateTime 2 156.21 cm 26.7 kg/m2 57453.5 1 g 72 /min 98 % 98 % 114/68 mm[Hg] Janette Sampson MA [facility] 2 17:03:03 Social History Question Answer Notes LastModified by Organizat ion Details LastModified Time Tobacco Smoking Status Never Smoker Ramesh Bocanegra [facility], [facility] 04/13/2014 16:54:14 Is Blood Transfusion Acceptable In An Emergency? Yes Information not available 06/23/2014 What Is Your Level Of Caffeine Consumption? Occasional Information not available 04/13/2014 How Much Tobacco Do You Chew? None Information not available 06/23/2014 What Type Of Diet Are You Following? REGULAR Information not available 06/23/2014 Which Illicit Or Recreational Drugs Have You Used? None Information not available 06/23/2014 Education 9 Information no t available 06/23/2014 Live Alone Or With Others? With Others Information not available 04/13/2014 What Was The Date Of Your Most Recent Tobacco Screening? 10/05/2024 Information not available 10/05/2024 How Many Children Do You Have? 2 Information not available 04/13/2014 Performs Monthly Self-breast Exam? Yes Information no t available 06/23/2014 What Is Your Relationship Status? Information not available 06/23/2014 Seat Belts Used Routinely Yes Information not available 06/23/2014 Are You Sexually Active? Yes Information not available 06/23/2014 How Much Tobacco Do You Smoke? No Information not available 06/23/2014 General Stress Level Medium Information not available 06/23/2014 Do You Use Sunscreen Routinely? Yes Information not available 06/23/2014 On What Date Was Tobacco Cessation Counseling Provided? 10/05/2024 Information not available 10/05/2024 Sex: Female Functional Status Question Answer Note LastModified by Organizat ion Details LastModified Time What is your level of alcohol consumption? None Information not available 04/13/2014 Do you or have you ever used smokeless tobacco? Never used smokeless tobacco Information not available 10/05/2019 Are you currently employed? No Information not available 06/23/2014 Are you able to care for yourself independently? 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 Never used electronic cigarettes Information not available 10/05/2019 What is your exercise level? None Information not available 06/23/2014 Mental Status None recorded. Family History Relationship Description Onset Age of this Age Resolved Age Notes LastModified by Organization Details LastModified Time Father Malignant neoplasm of transverse colon 72 [email or web address] Not available 2015 11:21:18 Sister Leukemia [email or web address] Not availab le 10/05/2019 16:12:47 Medical History Condition Response Coronary Artery Disease N Other N Atrial Fibrillation N High Blood Pressure N Thyroid Problems Y Kidney or Bladder Problems N Depression N COPD N Blood Clots N GI Problems N Skin Problems N Anemia N Heart Attack ([place]) N Diabetes N Anxiety Disorder N Muscle, Joint, or Bone Problems N Seizures/Epilepsy N Acid Reflux (GERD) N Cancer N Stroke N Allergies N Asthma N High Cholesterol N Hepatitis N Liver Disease N Headaches N Osteoporosis N Heart Failure N Gynecological History Statement/Question Response Abnormal Pap N Date of Last Mammogram 04/05/2021 Flow Moderate Date of LMP On BCP's at Conception? N STIs/STDs N HPV Vaccine N Most Recent Mammogram 03/14/2021 Age at Menarche 15 Current Control Method IUD Age at First Child 29 Frequency of Cycle (Q days) 30 Sexually Active? Y Menses Monthly Y Date of Last Pap Smear 12/04/2020 Sexual Problems? N LMP Approximate Desired Control Method IUD Obstetrics History GPAL:G 5 P 3 0 2 3 Type Value Multiple Births 0 Full Term 3 Induced 0 Spontaneous 2 Premature 0 Living 3 Ectopics 0 Total 5 Immunizations Vaccine Type Date Status Note Provider Nam e and Address Organization Details Recorded Time COVID-19, mRNA, LNP-S, PF, 30 mcg/0.3 mL dose 1 completed Layo Grewal [place], [place] [facility] 11/09/2020 12:32:24 COVID-19, mRNA, LNP-S, PF, 30 mcg/0.3 mL dose 1 completed [facility] [place], [place] [facility] 11/09/2020 12:32:45 Influenza, split virus, quadrivalent, preservative 6 completed Not Available [facility] 05/23/2019 02:32:35 Influenza, split virus, trivalent, PF 5 completed Not Available [facility] 10/05/2024 10:42:34 Tdap 7 completed Not Available [facility] 10/05/2024 10:42:34 Influenza, split virus, quadrivalent, preservative 8 completed Not Available [facility] 05/23/2019 02:47:58 Influenza, split virus, quadrivalent, preservative 0 completed DRAGAN GLASGOW Attn: Accounting[address] [place], [address], [place] [facility] 02/26/2020 15:36:15 influenza, seasonal, intradermal, preservative free 3 completed Not Available [facility] 06/06/2019 02:11:42 Tdap 2 completed Not Available [facility] 05/09/2016 05:53:24 Influenza, split virus, trivalent, preservative 4 completed LALO Nielsen Attn: Accounting[address] [place], [address], [place] [facility] 07/02/2014 16:33:20 Past Encounters Encounter ID Performer Location Encounter Start Date Encounter Closed Date Diagnosis/Indication Diagnosis SNOMED-CT Code Diagnosis ICD10 Code Diagnosis IMO Codes Diagnosis Note [id number] [facility]O [facility] [address] [facility] [place] [address] 04/13/2014 16:30:56 04/13/2014 17:31:49 Hypothyroidism 77045135 Dizziness 556313660 Suspec t it could be viral, patient to call office if not improved in 3 weeks. [id number] Abhishek Mitchell MD W Roger[facility] pulido ([facility]) [address] [place] [phone] 06/23/2014 14:07:42 06/28/2014 17:41:50 [facility]necologic examination 24626624 [id number] [address] [facility] [place] [address] 07/02/2014 16:21:31 07/02/2014 16:41:42 Hypothyroidism 44285972 [id number] Maryam Abad MD [facility] (Adult Med) [address] [place] [address] 06/13/2015 10:38:37 06/13/2015 11:23:31 Hypothyroidism 66834849 E03.9 Given orders to bring to [facility] to have completed When I receive results, if they are WNL will prescribe medication for another year - if not, will have adjust medication s accordingl y and have patient RTC in 2 months [id number] Maryam Abad MD [facility] (Adult Med) [address] [place] [address] 03/05/2016 16:22:08 03/07/2016 12:51:48 Active or passive immunization 042947514 Z23 Atopic dermatitis 170685 01 L20.9 Advised to try sports bras with good support under bilateral breasts that ensures that the skin does not rubWill try combinatio n of nystatin/t riamcinolo ne creamRTC in 1 week if no improvemen t [id number] Abhishek Mitchell MD [facility] pulido ([facility]) [address] [place] [address] 04/03/2016 10:25:19 04/04/2016 14:16:41 Advanced maternal age 307054798 O09.521 Routine an tenatal care 083986236 Z34.01 [id number] MD [facility] ([facility]) [address] [place] [address] 04/24/2016 10:03:51 05/09/2016 11:27:10 Gestation period, 11 weeks 61557583 Z3A.11 Advanced m aternal age 840920913 O09.521 Hypothyroi dism in 594120635 E03.9 Anemia 312401316 D64.9 [id number] MD [facility] ([facility]) [address] [place] [address] 06/04/2016 09:57:25 06/08/2016 12:18:14 Gestation period, 17 weeks 47632372 Z3A.17 Anemia dur ing - baby not yet delivered 627004340 O99.087 [id number] Maryam Abad MD [facility] (Adult Med) [address] [place] [address] 06/14/2016 10:28:02 06/14/2016 14:39:39 Hypothyroidism 09116989 E03.9 Continue with levothyrox ine 75mcgTSH/T 4 WNL in 03/2016 3 months ago - will not draw todayAdvis ed to follow with OBGYN for any concerns while she is Nasal congestion 8321814 0 R09.81 Advised to follow with OBGYN for any concerns while she is [id number] MD [facility] ([facility]) [address] [place] [address] 07/02/2016 09:55:20 07/04/2016 10:47:32 Gestation period, 21 weeks 33661301 Z3A.21 15047810 Z33.1 [id number] MD [facility] ([facility]) [address] [place] [address] 07/23/2016 10:14:16 08/02/2016 16:55:39 Second trimester 90765549 Z3A.24 [id number] MD [facility] ([facility]) [address] [place] [address] 09/04/2016 12:06:18 09/18/2016 10:42:45 Advanced maternal age 533185875 O09.521 Hypothyroi dism in 922637495 E03.9 Herpes simplex 10028426 B00.9 [id number] MD Francisco Valencia ([facility]) [address] [place] [address] 09/18/2016 12:16:40 09/21/2016 14:27:12 Gestation period, 32 weeks 1847133 Z3A.32 [id number] MD Francisco Valencia ([facility]) [address] [place] [address] 8 10/02/2016 12:14:39 10/08/2016 08:54:12 Gestation period, 35 weeks [id number] Z3A.35 [id number] MD Francisco Valencia [facility] (ASTRONAUT MISSION SPECIALIST) [address] [place] [address] 77617-000 8 10/10/2016 09:40:09 11/08/2016 13:05:26 Gestation period, 35 weeks [id number] Z3A.35 [id number] MD Francisco Valencia [facility] (ASTRONAUT MISSION SPECIALIST) [address] [place] [address] 65469-189 8 10/16/2016 12:18:43 10/22/2016 14:26:49 Third trimester 97947591 Z3A.36 Hypothyroi dism in 564621706 E03.9 [id number] MD Francisco Valencia Lorisjim [facility] (ASTRONAUT MISSION SPECIALIST) [address] [place] [address] 64673-174 8 10/22/2016 11:02:14 10/23/2016 10:00:10 Routine care 246585640 Z34.01 [id number] MD Francisco Valencia [facility] (ASTRONAUT MISSION SPECIALIST) [address] [place] [address] 72657-623 8 10/29/2016 11:01:43 10/30/2016 11:51:07 Gestation period, 39 weeks 36254725 Z3A.39 [id number] Abhishek Mitchell MD [facility] (ASTRONAUT MISSION SPECIALIST) [address] [place] [address]29-129 8 11/19/2016 10:48:02 11/30/2016 11:06:58 state 60254902 Z39.2 [id number] Janet Edmonds, [facility] [address] [place] [address] 12/27/2016 14:16:18 12/31/2016 12:52:22 Mastitis 87451599 N61.0 1 gram rocephin given per ma per vo [id number] Abhishek Mitchell MD [facility] (ASTRONAUT MISSION SPECIALIST) [address] [place] [address]17-644 8 12/31/2016 11:56:59 01/04/2017 10:29:29 Mastitis associated with 693053057 O91.22 finish 10 d regimen of clindamyci n x 10 d [id number] MD Ny Barksdale (Adult Med) [address] [place] [address]90-499 0 05/27/2017 10:34:49 05/27/2017 12:34:01 Hypothyroidism 51386144 E03.9 Continue with levothyrox ine 75mcgWill recheck at this time Anemia 137477462 D64.9 Will recheck at this time Active or passive immunization 949869176 Z23 Adult heal th examination 544151580 Z00.01 [id number] MD Ny Brown (Adult Med) [address] [place] [address]31[address]731 0 05/16/2018 15:44:36 05/19/2018 10:12:15 Adult health examination 954857935 Z00.01 Hypothyroidism 56869331 E03.9 Continue with levothyrox ine 75mcgWill recheck at this time Anemia 731171806 D64.9 Will recheck at this time [id number] MD Ny Vital (Adult Med) [address] [place] [phone] 0 09/22/2018 16:47:51 10/03/2018 08:50:27 Hypothyroidism 63439726 E03.9 Iron defic iency anemia 60258211 D50.9 [id number] DRAGAN GLASGOW (Adult Med) [address] [place] [address] 01/09/2019 15:06:23 01/12/2019 12:00:49 Hypothyroidism 82924524 E03.9 Well controlled , last thyroid level was normal back in 05/2018, will redraw again in 6 months Anemia 406623666 D64.9 Hx of anemia: Hgb was 8.7 on 05/26/18Too k 3 months of iron pills, no repeat studies completedA dmits to fatigue- Will check CBC and iron studies- Discussed possible control options to help with menorrhagi a, states they will discuss at home regarding this issue [id number] DRAGAN GLASGOW (Adult Med) [address] [place] [address] 07/16/2019 15:11:26 07/17/2019 11:47:09 Hypothyroidism 80622883 E03.9 Well controlled , last thyroid level was normal back in 05/2018, will redraw again today.- Will renew levothyrox ine 75 mcg rx. Contact dermatitis 83423 004 L25.9 Pt reports itchy rash to face/chest for two weeks.On exam: Patchy erythema to face and chest and few small, slightly raised 1mm papules to chestLikel y contact dermatitis .- Provided pt Zyrtec samples x7 to be taken QD.- Will rx hydrocorti sone 2.5% cream to be applied BID to the affected areas for 1-2 weeks, then stop.- Care instructio ns provided. [id number] Justus Younger MD [facility] (ASTRONAUT MISSION SPECIALIST) [address] [place] [address] 10/05/2019 15:55:28 10/06/2019 06:52:06 Gynecologic examination 51978372 Z01.419 --WWE Screening for malignant neoplasm of breast 256226265 Z12.39 Screening for malignant neoplasm of cervix 128488131 Z12.4 Initial pr escription of oral contraception 890338506 Z30.011 --requests oral contracept jose to shorten/li ghten menses mostly--de clines Mirena IUD--denie s hx HTN, tobacco use, FHx VTE--shira l hgb/hct per primary and TSH/fT4 controlled Body mass index 25-29 - overweight 043743662 Z68.26 --BMI 26.1 [id number] DRAGAN GLASGOW [facility] (Adult Med) [address] [place] [address] 02/26/2020 14:49:57 02/29/2020 09:12:20 Hypothyroidism 66917971 E03.9 Well controlled on levothyrox ine. Last thyroid level was normal back in 07/2019, will redraw again today.- Will renew levothyrox ine 75 mcg rx. Adult heal th examination 438204949 Z00.00 Bloodwork last obtained 05/2018. Will recheck labs today. Active or passive immunization 064437603 Z23 Flu vaccine given in office today. [id number] MD Francisco [facility] (ASTRONAUT MISSION SPECIALIST) [address] [place] [address] 05/05/2020 11:01:22 05/05/2020 17:56:01 Menorrhagia 643701077 N92.0 --long history--h x of hypothyroi dism with normal TSH/fT4 02/26/2020 --normal hgb/hct 02/26/2020 --discusse d contracept jose options and wishes to proceed with Mirena IUD once authorized Overweight 372397399 E66 .3 --BMI 27.4 Body mass index 25-29 - overweight 982280439 Z68.26 [id number] MD Francisco Clarke (ASTRONAUT MISSION SPECIALIST) [address] [place] [address] 06/09/2020 16:31:37 06/13/2020 06:10:37 Insertion of intrauterine contraceptive device 82558671 Z30.430 --Mirena IUD insertion Menorrhagia 516889639 N9 2.0 --long history--h x of hypothyroi dism with normal TSH/fT4 02/26/2020 --normal hgb/hct 02/26/2020 --normal pelvic u/s 05/16/20--d iscussed contracept jose options and wishes to proceed with Mirena IUD--embx performed today Polyp of cervix 75157527 N84.1 --on exam--in endocx canal and unable to remove completely [id number] Justus [facility] (ASTRONAUT MISSION SPECIALIST) [address] [place] [address] 8 07/21/2020 16:27:42 07/22/2020 14:54:55 Contraception care 196236435 Z30.431 --Mirena IUD placed 06/09/20 as below due to menorrhagi a --irregula r bleeding since insertion, reassured and she wishes to continue/g jose it time --plans return after 10/04/20 for her annual exam and recheck Menorrhagia 915074969 N9 2.0 --long history --hx of hypothyroi dism with normal TSH/fT4 02/26/2020 --normal hgb/hct 04/13/2020 --normal pelvic u/s 05/16/20 --discusse d contracept jose options and she wished to proceed with Mirena IUD --embx performed 06/09/20 wnl and benign endocervic al polyp removed [id number] [facility]) [address] [place] [phone] 8 12/07/2020 17:52:38 12/12/2020 10:12:15 Gynecologic examination 98257124 Z01.419 --WWE--has primary provider for routine health issues/scr eenings Screening for malignant neoplasm of cervix 140220768 Z12.4 --last Pap 10/05/2019 NILM -hr HPV and normal exam today so Pap not indicated Screening for malignant neoplasm of breast 512291616 Z12.39 --last mammogram 12/11/2019 Overweight 949662810 E66 .3 --BMI 27.4 Contraception care 76135 5005 Z30.431 --Mirena IUD placed 06/09/20 for contracept ion and menorrhagi a --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 will repeat Hypothyroidism 83934528 E03.9 Well controlled , last thyroid level was normal back in 2019, will redraw again today.- Will renew levothyrox ine 75 mcg rx. Goiter 6495465 E04.9 Noted on exam Adult heal th examination 799371017 Z00.00 [id number] DRAGAN BUENO [facility] [address] [place] [address] 07/26/2021 16:25:44 07/27/2021 09:38:07 Hypothyroidism 15004347 E03.9 Well controlled , last thyroid level was normal back in 2019. Patient was out of medication adn recent labs elevated. since being on medication she states she feels good.- Will renew levothyrox ine 75 mcg rx.- will repeat tsh in future as she declines today Goiter 3283378 E04.9 Noted on exam. US shows slightly enlarged thyroid w/o nodules. No further follow up at this time. [id number] DRAGAN BUENO [facility] [address] [place] [address] 01/16/2022 16:52:05 01/17/2022 15:09:01 Upper respiratory infection 66917318 J06.9 1 days of uri sx with congestion . denies fever, chills, earache,PE x: clear lungs, pharynx and TM wnl, congestion and edematous turbinates present- sx treatment Hypothyroidism 46964028 E03.9 Well controlled , last thyroid level was normal back in 2019. Patient was out of medication and recent labs elevated. since being on medication she states she feels good.- Will renew levothyrox ine 75 mcg rx.- will repeat tsh Overweight 720592384 E66 .3 [id number] DRAGAN BUENO [facility] [address] [place] [address] 07/27/2022 11:14:35 07/27/2022 11:49:26 Overweight 747784641 E66.3 bmi 26.3 Hypothyroidism 99844713 E03.9 Well controlled , last thyroid level was normal back in 2020. Patient was out of medication and recent labs elevated. since being on medication she states she feels good.- Will renew levothyrox ine 75 mcg rx.- will repeat tsh Screening for malignant neoplasm of colon 628105459 Z12.11 Hyperlipidemia 07864135 E78.5 [id number] DRAGAN BUENO [facility] [address] [place] [address] 09/24/2023 10:29:31 09/24/2023 11:07:35 Hypothyroidism 74893753 E03.9 Well controlled , last thyroid level was normal back in 2019. Patient was out of medication and recent labs elevated. since being on medication she states she feels good.- Will renew levothyrox ine 75 mcg rx.- will repeat tsh Overweight 977876421 E66 .3 bmi 25.9 Screening for malignant neoplasm of colon 740016301 Z12.11 denies bloody/dinah k stools or change in BMfather had colon cancer age 74 Adult heal th examination 862358171 Z00.00 - here for check up- labs- scheduled for pap- colon screening sent [id number] DRAGAN BUENO [facility] [address] [place] [address] 10/03/2023 10:49:26 10/03/2023 11:53:38 Gynecologic examination 15073148 Z01.419 IUD strong not seen- does not want USpolyp and os noted. 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 [id number] Bennie Jain MD [facility] [address] [place] [address] 10/05/2024 10:40:47 10/05/2024 11:53:31 Adult health examination 940504996 Z00.00 - here for check up- labs-pap normal- will request her mammogram from [facility]- colon screening sent Overweight 752264858 E66 .3 bmi 27.1 Screening for malignant neoplasm of colon 437114662 Z12.11 denies bloody/dinah k stools or change in BMfather had colon cancer age 74 Health Concerns Section Related Observation LastModified by Organization Detai ls LastModified Time None Recorded Concern Status LastModified by Organization Details LastModified Time None Recorded Advance Directives Directive None Recorded Payers Insurance Date Sequence Insurance Name Policy Number Policy Ribera Covered Member ID Ribera Member ID Guarantor Name 10/05/2024 1 [facility] (PPO) [id number] Manish Jo [id number] Radhacindy Jo 07/01/2024 2 [facility] - DOS PRIOR TO 2020 (MEDICAID REPLACEMENT - HMO) Radhacindy Jo [id number] Radha Jo 07/01/2024 1 [facility] - OPEN ACCESS (POS) Radhabambi Jo [id number] 2 Radha Jo 07/01/2024 2 MEDICAID-[place]: [place] [employer] OF PUBLIC AID Radha Jo [id number] Radha Jo 05/27/2017 1 [employer] (PPO) [id number] Manish Jo [id number] Radha Jo 10/05/2024 2 [facility] (MEDICAID HMO) [id number] Radha Sandro [id number] Radha Jo 07/01/2024 1 [place] [facility] OF PUBLIC AID Radha Jo [id number] Radha Jo 07/01/2024 1 [facility] [id number] Radha Jo [id number] Radha Sandro Notes Date Note Type Note Provider Name and Address Organization Details Recorded Time 2 text/html Upper Respiratory SymptomsReported by PatientUpper Respiratory SymptomsFor quality, patient reportscongested. For context, patient reportssick contact (son). For location, patient reportshead. For severity, patient reportsmild. For associated symptoms, patient reportsno sputum production,no shortness of breath,no wheezing,no sweats,no significant weight gain,no morning cough,no sore throat,no vomiting, andno nausea. For duration, (1 day).ROS as noted in the [facility] 46-year-old female with a history of hypothyroidism here for follow-up. Patient well controlled with levothyroxine for many years. Denies side effects to the medication. Thyroid labs last checked on 07/31/21 were Abnormal, she was not on medication. She feels good on medication at this time. Denies fever, chills, nausea, vomiting, headaches, chest pain, SOB, abdominal pain, diarrhea, constipation, or dysuria. DRAGAN BUENO Attn: Accounting,[address] [place], [address], [facility] 01/16/2022 17:33:34 3 text/html ROS as noted in the [facility] 46-year-old female with a history of hypothyroidism here for follow-upPatient well controlled with levothyroxine for many years. Denies side effects to the medication. Thyroid labs last checked on 01/25 were normal. She feels good on medication at this time. Denies fever, chills, nausea, vomiting, headaches, chest pain, SOB, abdominal pain, diarrhea, constipation, or dysuria. DRAGAN BUENO Attn: Accounting,[address] [facility], [place], [address], [facility] 07/27/2022 12:20:59 4 text/html ROS as noted in the [facility] 47-year-old female with a history of hypothyroidism here for follow-up Patient well controlled with levothyroxine for many years. Denies side effects to the medication. Thyroid labs last checked on 01/25 were normal. She feels good on medication at this time. colon screen: agrees to have this done at this time. father had colon cancer. Denies fever, chills, nausea, vomiting, headaches, chest pain, SOB, abdominal pain, diarrhea, constipation, or dysuria. DRAGAN BUENO Attn: Accounting,[address] [facility], [place], [address], [facility] 09/24/2023 11:17:31 4 text/html Annual GYNReported by PatientGenitourinary symptomsFor urinary symptoms, patient reportsno hematuriaandno incontinence. For vulva, patient reportsno genital lesion. For vagina, patient reportsnormal vaginal discharge.Breast symptomsFor breast, patient reportsno breast pain,no breast lump, andno nipple discharge.ContraceptionFo r current contraception, patient reportswants to discuss contraceptive options.Endocrine symptomsFor sexual complaints, patient reportsno sexual complaints,no pain during intercourse, andnormal libido. 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 no vaginal or breast concerns. LMP: IUD, NO PERIODSLast Pap:NILM HPV- 2014, 2019Last mammogram: 2020 showed benignt Cyst r breastContraception: IUDSTI hx: deniesFam hx: denies breast, cervical, uterine, ovarian cancers . DRAGAN BUENO Attn: Accounting,[address] [facility], [place], [address], [facility] 10/03/2023 11:49:04 5 text/html ROS as noted in the [facility] 49-year-old female with a history of hypothyroidism here for follow-up Patient well controlled with levothyroxine for many years. Denies side effects to the medication. colon screen: agrees to have this done at this time. father had colon cancer. did not schedule last visit due to losing insurance.m[facility] Denies fever, chills, nausea, vomiting, headaches, chest pain, SOB, abdominal pain, diarrhea, constipation, or dysuria. DRAGAN BUEON Attn: Accounting,[address] [facility], [place], [address], [facility] 10/05/2024 11:43:38 OBGyn Episode Ob Episode Information Episode Created Date Number of Fetuses Patient Bloodtype Patient rh Status Prepregnancy Weight lbs Domestic Partner Domestic Partner Phone Father Name Freezer Assistant Status 04/03/20 16 1 CLOSED Fetus Data First Name Last Name Admitted to NICU Weight (g) Sex Living Outcome Pediatric Complications Fetus ID Race Codes [place] [id number] Jose Maria Calculation Initial Jose Maria Date Initial Exam Date Initial Exam Provider Initial Ultrasound Date Last Menstrual Period Date Ultra Sound Weeks Gestation 0 Eighteen To Twenty Week Jose Maria Update Ultra Sound Date Fundal Height At Umbil Quickening Date Ultra Sound Latest Weeks Gestation Final Jose Maria Confirmed By Final Jose Maria Confirmed Date Final Jose Maria Date Ultra Sound Latest Days Gestation 0 0 Menstrual History Last Menstrual Date Menses Monthly On Bcp Conception Prior Menses Frequency Hcg Plus Date Menarche Onset Age Delivery Information Delivery Date Delivery Type Labor Anesthesia Weeks Gestation Incision Type Labor Labor Length Hrs Delivered By Post Complications Tubal Sterilization Discharge Date Comments 9 Regional-Sp inal 40 false delivere d at [facility] Discharge Information Feeding Method Contraceptive Method Maternal HG B and HCT Levels Ob Episode Information Episode Created Date Number of Fetuses Patient Bloodtype Patient rh Status Prepregnancy Weight lbs Domestic Partner Domestic Partner Phone Father Name Freezer Assistant Status 04/03/20 16 1 CLOSED Fetus Data First Name Last Name Admitted to NICU Weight (g) Sex Living Outcome Pediatric Complications Fetus ID Race Codes Race Delivery Type M Full Term [id number] Jose Maria Calculation Initial Jose Maria Date Initial Exam Date Initial Exam Provider Initial Ultrasound Date Last Menstrual Period Date Ultra Sound Weeks Gestation 0 Eighteen To Twenty Week Jose Maria Update Ultra Sound Date Fundal Height At Umbil Quickening Date Ultra Sound Latest Weeks Gestation Final Jose Maria Confirmed By Final Jose Maria Confirmed Date Final Jose Maria Date Ultra Sound Latest Days Gestation 0 0 Menstrual History Last Menstrual Date Menses Monthly On Bcp Conception Prior Menses Frequency Hcg Plus Date Menarche Onset Age Delivery Information Delivery Date Delivery Type Labor Anesthesia Weeks Gestation Incision Type Labor Labor Length Hrs Delivered By Post Complications Tubal Sterilization Discharge Date Comments 6 Regional-Sp inal [address] E--FT P Discharge Information Feeding Method Contraceptive Method Maternal HG B and HCT Levels Ob Episode Information Episode Created Date Number of Fetuses Patient Bloodtype Patient rh Status Prepregnancy Weight lbs Domestic Partner Domestic Partner Phone Father Name Freezer Assistant Status 04/03/20 16 1 CLOSED Fetus Data First Name Last Name Admitted to NICU Weight (g) Sex Living Outcome Pediatric Complications Fetus ID Race Codes Race Delivery Type , Spontane ous [id number] Jose Maria Calculation Initial Jose Maria Date Initial Exam Date Initial Exam Provider Initial Ultrasound Date Last Menstrual Period Date Ultra Sound Weeks Gestation 0 Eighteen To Twenty Week Jose Maria Update Ultra Sound Date Fundal Height At Umbil Quickening Date Ultra Sound Latest Weeks Gestation Final Jose Mraia Confirmed By Final Jose Maria Confirmed Date Final Jose Maria Date Ultra Sound Latest Days Gestation 0 0 Menstrual History Last Menstrual Date Menses Monthly On Bcp Conception Prior Menses Frequency Hcg Plus Date Menarche Onset Age Delivery Information Delivery Date Delivery Type Labor Anesthesia Weeks Gestation Incision Type Labor Labor Length Hrs Delivered By Post Complications Tubal Sterilization Discharge Date Comments 4 Discharge Information Feeding Method Contraceptive Method Maternal HG B and HCT Levels Ob Episode Information Episode Created Date Number of Fetuses Patient Bloodtype Patient rh Status Prepregnancy Weight lbs Domestic Partner Domestic Partner Phone Father Name Freezer Assistant Status 04/03/20 16 1 CLOSED Fetus Data First Name Last Name Admitted to NICU Weight (g) Sex Living Outcome Pediatric Complications Fetus ID Race Codes Race Delivery Type Stacey Muril lo false 3288.54 2 F true Full Term 69889 2106-3 White Repeat Problems Problem Notes LOW LYING PLACENTA - 1.24 CM AT 21+5 WKS Problem Name Start Date End Date Resolution Snomed Code Not e Deliveries by planning vasectomy Advanced maternal age 949129090 declined geneti c testing w MFM Hypothyroidism 34635111 MFM c o managed Anemia 341327380 on Fe ther apy with Hx of heavy menses 1 year before getting Herpes simplex 95741964 plan 3rd trim prophyllaxis Low-lying placenta 06/25/2016 [id number] rep us at 28+ weeks Jose Maria Calculation Initial Jose Maria Date Initial Exam Date Initial Exam Provider Initial Ultrasound Date Last Menstrual Period Date Ultra Sound Weeks Gestation 11/07/2016 04/03/2016 [email or web address] 04/23/2016 02/01/2016 12 Eighteen To Twenty Week Jose Maria Update Ultra Sound Date Fundal Height At Umbil Quickening Date Ultra Sound Latest Weeks Gestation Final Jose Maria Confirmed By Final Jose Maria Confirmed Date Final Jose Maria Date Ultra Sound Latest Days Gestation 06/25/19 17 20 [email or web address] 06/04/2016 0705/2 017 5 Pre- Flowsheet Flowsheet Date 04/03/2016 Hutson Score Blood Edema Fundus Height Fundus Units Glucose Ketones Leukocytes Nitrite Labor Signs Protein Cervic Dilation Cervic Effacement Cervic Station neg none 9 wks none negative none neg Type Weight in lbs Pre/Post Dialysis Refused 130.001253171630 BP Diastolic BP Location Tested BP Systolic BP Type 68 110 sitting Fetus Heart Rate Present Fetus Movement Comments PNM lab panel clotrimazole f or breast fungal inf and [facility] u/s for AMA / rto in 3 weeks Flowsheet Date 04/24/2016 Hutson Score Blood Edema Fundus Height Fundus Units Glucose Ketones Leukocytes Nitrite Labor Signs Protein Cervic Dilation Cervic Effacement Cervic Station neg none 12 wks none negative none neg Type Weight in lbs Pre/Post Dialysis Refused 130.093929010297 BP Diastolic BP Location Tested BP Systolic BP Type 66 108 sitting Fetus Heart Rate Present A 160 Fetus Movement A No Comments euthyroid labs reviewed and discussed proper intake of Fe Tx / pt to rto in declines at this screening . / rto in 4 weeks / pt has apt with MFM o f/u on aleshia survey as well as co-managenent Flowsheet Date 06/04/2016 Hutson Score Blood Edema Fundus Height Fundus Units Glucose Ketones Leukocytes Nitrite Labor Signs Protein Cervic Dilation Cervic Effacement Cervic Station neg none 18 none negative none neg Type Weight in lbs Pre/Post Dialysis Refused 138.681518024476 BP Diastolic BP Location Tested BP Systolic BP Type 68 106 sitting Fetus Heart Rate Present A 154 Fetus Movement A Yes Comments will repeat CBC/ continued f /u wu MFM will get aleshia survey 06/25/16 / declines anyuploidy screening aware of nature ios testing and RB&A./ ciont Fee suppl Tx Flowsheet Date 06/14/2016 Hutson Score Blood Edema Fundus Height Fundus Units Glucose Ketones Leukocytes Nitrite Labor Signs Protein Cervic Dilation Cervic Effacement Cervic Station Type Weight in lbs Pre/Post Dialysis Refused 137.620764436696 BP Diastolic BP Location Tested BP Systolic BP Type 52 82 sitting Fetus Heart Rate Present Fetus Movement Comments Flowsheet Date 07/02/2016 Hutson Score Blood Edema Fundus Height Fundus Units Glucose Ketones Leukocytes Nitrite Labor Signs Protein Cervic Dilation Cervic Effacement Cervic Station neg none 20 none negative none neg Type Weight in lbs Pre/Post Dialysis Refused 143.870185332420 BP Diastolic BP Location Tested BP Systolic BP Type 62 106 sitting Fetus Heart Rate Present A 155 Fetus Movement A Yes Comments rto in 3 weeks GCT ! hr next visit Flowsheet Date 07/23/2016 Hutson Score Blood Edema Fundus Height Fundus Units Glucose Ketones Leukocytes Nitrite Labor Signs Protein Cervic Dilation Cervic Effacement Cervic Station neg none 24 none negative none neg Type Weight in lbs Pre/Post Dialysis Refused 146.412585079697 BP Diastolic BP Location Tested BP Systolic BP Type 64 102 sitting Fetus Heart Rate Present A 140 Fetus Movement A Yes Comments check TSH ref to T4---1Hr GC T today / discussed BTL yasmany RB&A and preplanning for rep c/s . 3rd trim HSV antiviral prophylaxis discussed Flowsheet Date 09/04/2016 Hutson Score Blood Edema Fundus Height Fundus Units Glucose Ketones Leukocytes Nitrite Labor Signs Protein Cervic Dilation Cervic Effacement Cervic Station neg none 29 none negative none neg Type Weight in lbs Pre/Post Dialysis Refused 153.893278210302 BP Diastolic BP Location Tested BP Systolic BP Type 60 112 sitting Fetus Heart Rate Present A 150 Fetus Movement A Yes Comments TSH / antiviral prophylaxis started / Pt agrees to Possible tubal only. / rto in 2 weeks BTL forms signed today Flowsheet Date 09/18/2016 Hutson Score Blood Edema Fundus Height Fundus Units Glucose Ketones Leukocytes Nitrite Labor Signs Protein Cervic Dilation Cervic Effacement Cervic Station neg none 33 none negative none neg Type Weight in lbs Pre/Post Dialysis Refused 155.55110927098 BP Diastolic BP Location Tested BP Systolic BP Type 68 112 sitting Fetus Heart Rate Present A 154 Fetus Movement A Yes Comments rto in 2 weeks / BTL forms s igned last week/ will sched Rep c/s poss btl next visit Flowsheet Date 10/02/2016 Hutson Score Blood Edema Fundus Height Fundus Units Glucose Ketones Leukocytes Nitrite Labor Signs Protein Cervic Dilation Cervic Effacement Cervic Station neg none 35 none negative none neg Type Weight in lbs Pre/Post Dialysis Refused 157.130970275983 BP Diastolic BP Location Tested BP Systolic BP Type 60 104 sitting Fetus Heart Rate Present A 147 Fetus Movement A Yes Comments rep c/s for 6-30 erto in one week Flowsheet Date 10/09/2016 Hutson Score Blood Edema Fundus Height Fundus Units Glucose Ketones Leukocytes Nitrite Labor Signs Protein Cervic Dilation Cervic Effacement Cervic Station neg none 36 none negative neg Type Weight in lbs Pre/Post Dialysis Refused 159.276964578610 BP Diastolic BP Location Tested BP Systolic BP Type 60 102 sitting Fetus Heart Rate Present A 145 Fetus Movement A Yes Comments rto in 1 wk Flowsheet Date 10/16/2016 Hutson Score Blood Edema Fundus Height Fundus Units Glucose Ketones Leukocytes Nitrite Labor Signs Protein Cervic Dilation Cervic Effacement Cervic Station neg none 37 none negative neg 0cm 0% - 4 Type Weight in lbs Pre/Post Dialysis Refused 163.599281469148 BP Diastolic BP Location Tested BP Systolic BP Type 72 108 sitting Fetus Heart Rate Present A 140 Fetus Movement A Yes Comments lab s show TSh wnl and T4 lo w / will check Free T4 and T3 TSH panel / rto in one week Flowsheet Date 10/22/2016 Hutson Score Blood Edema Fundus Height Fundus Units Glucose Ketones Leukocytes Nitrite Labor Signs Protein Cervic Dilation Cervic Effacement Cervic Station neg none 38 none negative neg Type Weight in lbs Pre/Post Dialysis Refused 163.021813205694 BP Diastolic BP Location Tested BP Systolic BP Type 62 104 sitting Fetus Heart Rate Present A 150 Fetus Movement A Yes Comments T3 up T4 low ON synthroid 0. 75 mg rto in 1 week Flowsheet Date 10/29/2016 Hutson Score Blood Edema Fundus Height Fundus Units Glucose Ketones Leukocytes Nitrite Labor Signs Protein Cervic Dilation Cervic Effacement Cervic Station neg trace 39 none negative none neg 0cm 0% -4 Type Weight in lbs Pre/Post Dialysis Refused 163.741538019637 BP Diastolic BP Location Tested BP Systolic BP Type 68 112 sitting Fetus Heart Rate Present A 160 Fetus Movement A Yes Comments reviewed consent for surgery today for rep c/s poss BTL( only in case there would be indications for complucated rep c/s as discussed with her including and not limited to uterine window, dehiscence severe adhesions or organ damage.) Flowsheet Date 11/19/2016 Hutson Score Blood Edema Fundus Height Fundus Units Glucose Ketones Leukocytes Nitrite Labor Signs Protein Cervic Dilation Cervic Effacement Cervic Station Type Weight in lbs Pre/Post Dialysis Refused 138.307977171180 BP Diastolic BP Location Tested BP Systolic BP Type sitting Fetus Heart Rate Present Fetus Movement Comments Flowsheet Date 12/27/2016 Hutson Score Blood Edema Fundus Height Fundus Units Glucose Ketones Leukocytes Nitrite Labor Signs Protein Cervic Dilation Cervic Effacement Cervic Station Type Weight in lbs Pre/Post Dialysis Refused 132.094296432517 BP Diastolic BP Location Tested BP Systolic BP Type 66 L arm 110 sitting Fetus Heart Rate Present Fetus Movement Comments Flowsheet Date 12/31/2016 Hutson Score Blood Edema Fundus Height Fundus Units Glucose Ketones Leukocytes Nitrite Labor Signs Protein Cervic Dilation Cervic Effacement Cervic Station Type Weight in lbs Pre/Post Dialysis Refused 134.308006026179 BP Diastolic BP Location Tested BP Systolic BP Type 70 110 sitting Fetus Heart Rate Present Fetus Movement Comments Menstrual History Last Menstrual Date Menses Monthly On Bcp Conception Prior Menses Frequency Hcg Plus Date Menarche Onset Age 0902/01/2016 true false 25 6 13 Genetic Screening And Infection History Question Response Note Patient's Age Will Be 35 Years Or Older At Estim ated Date of Delivery true Thalassemia (Iranian, Nepali, Mediterranean, Or Background): MCV < 80 false Neural Tube Defect (Meningomyelocele, Spina Bifi da, Or Anencephaly) false Congenital Heart Defect false Down Syndrome false Dudley-Sachs (eg, Jehovah'S Witness, Cajun, Portuguese-[place]) f alse David Disease false Sickle Cell Disease Or Trait () false Hemophilia Or Other Blood Disorders false Muscular Dystrophy false Cystic Fibrosis false Geovani's Chorea false Mental Retardation/Autism false If Yes, Was Person Tested For Fragile X? false Other Inherited Genetic Or Chromosomal Disorder false Maternal Metabolic Disorder (eg, Type 1 Diabetes , PKU) false Patient Or Baby's Father Had A Child With Defects Not Listed Above false Recurrent Loss, Or A Stillbirth false Medications (including Suppl ements, Vitamins, Herbs, OTC Drugs), Illicit/Recreational Drugs, Alcohol false If Yes, Agent(s) And Strength/Dosage false Any Other Genetic History false Live With Someone With TB Or Exposed To TB false Patient Or Partner Has History Of Genital Herpes false Rash Or Viral Illness Since Last Menstrual Perio d false History Of STD, Gonorrhea, Chlamydia, HPV, Syphi lis false Other Infection History false Plans and Education First Trimester Discussed Date Discussion Item Discussion Note Discuss ed By Second Trimester Discussed Date Discussion Item Discussion Note Discuss ed By 07/23/[address]/tubal sterilization vcolonalcaraz Third Trimester Discussed Date Discussion Item Discussion Note Discuss ed By Delivery Information Delivery Date Delivery Type Labor Anesthesia Weeks Gestation Incision Type Labor Labor Length Hrs Delivered By Post Complications Tubal Sterilization Discharge Date Comments 7 Induce d [facility] 39.1 Low Transvers e false VColon None true 11/04/2016 Discharge Information Feeding Method Contraceptive Method Maternal HG B and HCT Levels Bottle Ob Episode Information Episode Created Date Number of Fetuses Patient Bloodtype Patient rh Status Prepregnancy Weight lbs Domestic Partner Domestic Partner Phone Father Name Freezer Assistant Status 04/03/20 16 1 CLOSED Fetus Data First Name Last Name Admitted to NICU Weight (g) Sex Living Outcome Pediatric Complications Fetus ID Race Codes Race Delivery Type , Spontane ous [id number] Jose Maria Calculation Initial Jose Maria Date Initial Exam Date Initial Exam Provider Initial Ultrasound Date Last Menstrual Period Date Ultra Sound Weeks Gestation 0 Eighteen To Twenty Week Jose Maria Update Ultra Sound Date Fundal Height At Umbil Quickening Date Ultra Sound Latest Weeks Gestation Final Jose Maria Confirmed By Final Jose Maria Confirmed Date Final Jose Maria Date Ultra Sound Latest Days Gestation 0 0 Menstrual History Last Menstrual Date Menses Monthly On Bcp Conception Prior Menses Frequency Hcg Plus Date Menarche Onset Age Delivery Information Delivery Date Delivery Type Labor Anesthesia Weeks Gestation Incision Type Labor Labor Length Hrs Delivered By Post Complications Tubal Sterilization Discharge Date Comments 3 Discharge Information Feeding Method Contraceptive Method Maternal HG B and HCT Levels
--- OUTSIDE RECORDS SUMMARY | 2025-02-12 00:21 | XMS_ITS | Clinical Summary ---
Author Organization [facility] [address] [place] [id number] Care Team Providers Care Slicing Machine Feeder Name Role Phone Griselda Hoskins Primary Care Provider + Social History Tobacco Use Types Packs/Day Years Used Date Smoking Tobacco: Never Assessed Comments No Sex and Gender Information Value Date Recorded Sex Assigned at Not on file Legal Sex Female 7:45 AM [employer]IST Gender Identity Not on file Sexual Orientation Not on file Obstetrics History Para Term AB IAB SAB Ectopic Multiple Livin g Live Births 5 3 3 Date Outcome GA Total Labor Labor/2nd/3rd Weight Sex Type Anes PTL Mariya A1 A5 Name Clin Term Term Term Last Filed Vital Signs Vital Sign Reading Time Taken Comments Blood Pressure 101/64 11/01/2016 10:56 AM CDT Pulse 69 11/01/2016 10:56 AM CDT Temperature 37.1 C (98.7 F) 11/01/2016 10:56 AM CDT Respiratory Rate - - Oxygen Saturation 98% 11/01/2016 10:56 AM CDT Inhaled Oxygen Concentration - - Weight 73.9 kg (163 lb) 11/01/2016 10:56 AM CDT Height 152.4 cm (5') 11/01/2016 10:56 AM CDT Body Mass Index 31.83 11/01/2016 10:56 AM CDT Plan of Treatment Health Maintenance Due Date Last Done Comments Cervical Cancer Screening 1977 Colon Cancer Screening-Colonoscopy 1977 Depression Screening 1977 Hepatitis C Screening 1977 Hepatitis B Screening 09/26/1995 Regular Well Visit/Exam 18-64 09/26/1995 Covid-19 Vaccine ( season) 2025 09/10/2020, 08/19/2020 Influenza Vaccine (#1) 2025 , 05/27/2017, 03/07/2016, Additional history exists Breast Cancer Screening-Mammogram 02/09/2025 02/10/2024, 03/14/2021, 12/11/2019 DTaP/Tdap/Td Vaccine (4 - Td or Tdap) 11/03/2026 11/03/2016, 11/03/2016, 11/06/2011 Pneumococcal vaccine <65 Aged Out No longer eligible based on patient's age to complete this topic Procedures Procedure Name Priority Date/Time Associated Diagnosis Comments DIAGNOSTIC MAMMOGRAM BILATERAL W SEAN Schedule Routine, Read Routine (OP Routine) 02/10/2024 8:36 AM CDT Mass of left breast, unspecified quadrant from Last 3 Months or Most Recently Relevant to Health Maintenance Results * Diagnostic Mammogram Bilateral W Sean (02/10/2024 8:36 AM CDT) Anatomical Region Laterality Modality Breast Bilateral Mammography 02/10/2024 9:16 AM CDT Narrative 02/10/2024 9:23 AM CDT EXAM DESCRIPTION: US BREAST BILATERAL LIMITED; DIAGNOSTIC MAMMOGRAM BILATERAL W SEAN REASON FOR STUDY: 48-year-old female with physician palpated lump in the left breast. Right screening mammogram. COMPARISON: 04/20/2021, 03/14/2021, 12/11/2019 TECHNIQUE: CC and MLO views of the bilateral breasts were obtained with digital technique using breast tomosynthesis with C view. Limited ultrasound of the bilateral breasts was performed with grayscale and color Doppler. FINDINGS: DENSITY: The breasts are heterogeneously dense, which may obscure small masses. MAMMOGRAM FINDINGS: There are a few benign calcifications in both breasts. A radiopaque BB marker has been placed on the central inner left breast, denoting the palpable area of concern. There is no abnormality underlying the marker. There is an approximately 3 cm oval circumscribed mass in the right breast at 10 o'clock, posterior depth. This was previously characterized as a benign cyst but has increased in size. Additional similar appearing round and oval circumscribed masses are identified in the left breast, most pronounced between approximately the 1 o'clock and 4 o'clock positions, mid to posterior depth. There is no other new suspicious finding in either breast on mammogram. ULTRASOUND FINDINGS: Targeted ultrasound of the left breast palpable area of concern at 9 o'clock, 5 cm from the nipple demonstrates only normal tissue with no solid or cystic mass or other suspicious finding. Targeted ultrasound of the right breast at 10 o'clock, 10 cm from the nipple demonstrates a benign anechoic simple cyst measuring 2.8 x 1.3 x 3.3 cm. Additional benign anechoic simple cysts are identified in the left breast measuring 9 x 6 x 8 mm at 1:30 o'clock (8 cm from the nipple), 11 x 6 x 10 mm at 2 o'clock (8 cm from the nipple), 7 x 5 x 7 mm at 3 o'clock (5 cm from the nipple), and 8 x 2 x 8 mm at 4 o'clock (8 cm from the nipple), respectively. IMPRESSION: 1. No suspicious finding on either mammogram or ultrasound at the left breast palpable area of concern (at 9 o'clock, 5 cm from the nipple). Clinical follow-up is recommended. Any further evaluation should be based on clinical grounds. 2. Multiple benign simple cysts in both breasts as detailed above, largest on the right measuring 3.3 cm at 10 o'clock (10 cm from the nipple). 3. No mammographic evidence of malignancy in either breast. Monthly breast self physical examination and screening mammography in 1 year are recommended. I discussed these findings and recommendations with patient and her at the time of the examination. BIRADS 2 - Benign findings. THIS IS AN ELECTRONICALLY VERIFIED FINAL REPORT 02/10/2024 9:23 AM - Electronically signed by Khalif Baird M.D., MD: Report ID: [id number] Reading Location: [facility] Griselda ARCHIBALD IMG MAMMO PROCEDURES Fin al Result from Last 3 Months or Most Recently Relevant to Health Maintenance Insurance BLUE [employer] IDPA Care Teams Slicing Machine Feeder Relationship Specialty Start Date End Date Griselda Hoskins PA PCP - General Physician It Corporate Recruiter 07/12/21
[2025-02-12 09:30] VITALS: BP 125/82; PULSE 80; RESP 18; TEMP 36.1; O2SAT 100; BMI 25.6
--- NOTE | 2025-02-12 09:31 | SUR.PREOP ---
Lpn Per Diem used in preoperative assessment, [facility] #[id number].
[2025-02-12] MEDS: LACTATED RINGERS 1,000 ML 150 ML IV CONT (09:41)
[2025-02-12 09:43] LABS: BEDSIDEPREGUCG Negative (Negative)
--- NOTE | 2025-02-12 09:53 | WPDANESEPPF ---
Anes - Initial Pre Proc Eval Procedure: Operation Date: 02/12/25 10:30 Proposed Procedures p Screening Colonoscopy - Harjit Armstrong MD Date/Time: 02/12/25 09:53 Surgeon: Harjit Armstrong MD Pre Op Diagnosis: Encounter for screening for malignant neoplasm of Patient Data Age: 49 Gender: F Height: 1.6 m Weight: 65.6 kg Last Vital Signs Temp 36.1 C L 02/12/25 09:30 Pulse 80 02/12/25 09:30 Resp 18 02/12/25 09:30 BP 125/82 02/12/25 09:30 Pulse Ox 100 02/12/25 09:30 O2 Del Method Room Air 02/12/25 09:30 Allergies Allergy/AdvReac Type Severity Reaction Status Date / Time No Known Allergies Allergy Verified 02/12/25 09:29 Home Medications ?Medication ?Instructions ?Recorded ?Confirmed ?Type levothyroxine 75 mcg tablet 75 mcg PO DAILY 02/05/25 02/12/25 History Laboratory Tests 02/12/25 09:41 POC Urine HCG, Qual Negative (Negative) Patient hx anesthesia problems: none Family hx anesthesia problems: none Results Review: All pre-operative results and documents have been reviewed as part of the pre-operative evaluation. [facility] Social History Social History Smoking status: Never smoker Substance use type: does not use Living arrangements: with family Additional living arrangements comments: with sp Anes - Eval Final PreProcedure Day of Procedure 02/12/25 09:53 Patient weight: normal Heart: regular rate and rhythm Lungs: clear to auscultation Airway: Mallampati scale class II Neurological: alert and oriented Last oral intake: >/= 8 hours ASA classification: II Emergent: no Anesthetic plan: proceed Anesthesia type and monitoring: general GIVS and standard monitoring Results Review: All pre-operative results and documents have been reviewed as part of the pre-operative evaluation. Informed Consent: The patient's anesthetic plan and its attendant risks and benefits were discussed with the patient/family/POA. Questions were solicited and answers provided to the satisfaction of the patient/family/POA.
--- NOTE | 2025-02-12 09:55 | PM.HPGS ---
History of Present Illness History of Present Illness Consent: Risks, benefits, and alternatives have been discussed and questions answered. Patient agrees to proceed with procedure. Chief complaint: Encounter for screening for malignant neoplasm of Narrative: Radha Jo is a 49 year old female here for first screening colonoscopy Review of Systems Review of Systems: All systems reviewed & are unremarkable except as noted in HPI and below PMFSH Past Medical History Medical History (Updated 02/12/25 @ 09:56 by Harjit Armstrong MD) Colon cancer screening Social History Social History Smoking status: Never smoker Substance use type: does not use Living arrangements: with family Additional living arrangements comments: with sp Meds Home Medications and Allergies Home Medications ?Medication ?Instructions ?Recorded ?Confirmed ?Type levothyroxine 75 mcg tablet 75 mcg PO DAILY 02/05/25 02/12/25 History Allergies Allergy/AdvReac Type Severity Reaction Status Date / Time No Known Allergies Allergy Verified 02/12/25 09:29 Vital Signs Vital Signs - 24 hr 02/12/25 09:30 Temperature 97 F L Pulse Rate 80 Respiratory Rate 18 Blood Pressure 125/82 Pulse Oximetry 100 Oxygen Delivery Room Air Exam Const: General: comfortable and no acute distress HENMT: Face/Nose/Sinus: Normal nares present Eyes: General: appearance normal, both eyes and all related structures Neck: Neck: no JVD Resp: Auscultation: clear to auscultation bilaterally Cardio: Rate: regular rate Rhythm: regular rhythm GI: Inspection: non-distended GI Palp: Yes Soft to palpation Skin: General skin exam: normal color Extrem: General: normal to inspection Psych: Mental Status: mental status grossly normal Assessment and Plan Assessment and plan (1) Colon cancer screening: Code(s): Z12.11 - Encounter for screening for malignant neoplasm of colon Status: Acute Assessment and Plan: colonoscopy
[2025-02-12 10:12] VITALS: BP 87/42; PULSE 73; RESP 15; O2SAT 98
[2025-02-12 10:22] VITALS: BP 110/69; PULSE 60; RESP 15; O2SAT 98
[2025-02-12 10:32] VITALS: BP 103/62; PULSE 58; RESP 16; O2SAT 98
== END 2025-02-12 10:46 | disposition home or self-care (01) ==
PROVIDERS: Anesthesiology; PCP Physician Assistant; Referring Provider Physician Assistant; Visit Provider Internal Medicine Gastroenterology
PROC: 0DJD8ZZ Inspection of Lower Intestinal Tract, Via Natural or Artificial Opening Endoscopic (ICD-10-PCS; CPT 45378; principal; 2025-02-12 10:30)
DX: Z12.11 Encounter for screening for malignant neoplasm of colon (principal); K64.8 Other hemorrhoids
CPT/HCPCS: 45378; J2704; J7120